=== PATIENT | female | born 2000 ===

== ENCOUNTER 2019-08-02 23:34 | Outpatient (CLI) | payer BC ==
[~2019-08-02] VITALS: Ht 149.9 cm; Wt 68.0 kg
[2019-08-02 23:54] VITALS: BP 101/57
[2019-08-03] LABS: MICROSCOPIC INDICATED
== END 2019-08-03 01:20 | disposition home or self-care (01) ==
LOC: LDOP 23:34
PROVIDERS: ATTEND Obstetrics & Gynecology
DX: O26.893 Other specified pregnancy related conditions, third trimester (principal); R10.9 Unspecified abdominal pain; Z3A.36 36 weeks gestation of pregnancy
CPT/HCPCS: 59025; 81001; 87086; 99201; G0463

== ENCOUNTER 2019-08-05 23:21 | Outpatient (CLI) | payer BC ==
[2019-08-05 23:46] VITALS: BP 123/57
== END 2019-08-06 01:06 | disposition home or self-care (01) ==
LOC: LDOP 23:21
PROVIDERS: ATTEND Obstetrics & Gynecology
DX: O62.8 Other abnormalities of forces of labor (principal); Z3A.37 37 weeks gestation of pregnancy
CPT/HCPCS: 59025; 99211; G0463